=== PATIENT | female | born 2000 | race Asian ===

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

== ENCOUNTER 2023-07-27 13:19 | Emergency (ER) | payer MEDICAID ==
[~2023-07-27] VITALS: Ht 152.4 cm; Wt 47.7 kg
[2023-07-27 13:35] VITALS: BP 135/93
[2023-07-27] MEDS ORDERED: TAMIFLU 75MG75 MG PO (14:10)
[2023-07-27 14:30] VITALS: PULSE 84; TEMP 98.3
== END 2023-07-27 14:31 | disposition home or self-care (01) ==
LOC: COL.ER 13:19
DX: J10.1 Influenza due to other identified influenza virus with other respiratory manifestations (principal); E11.9 Type 2 diabetes mellitus without complications; Z79.4 Long term (current) use of insulin